=== PATIENT | female | born 1945 | race Caucasian/White ===

== ENCOUNTER 2023-06-07 12:10 | Outpatient (AMB) | payer MEDICARE, BC, SELFPAY ==
--- NOTE | 2023-06-07 12:18 | HO.NEPHOV ---
HPI HPI Comments History of Present Illness Details I had the delight of seeing Elis in follow-up for CKD. She also is known to have a renal cyst. She has been working hard to lose some weight and has been successful , in preparation for her right knee surgery. She uses CPAP at night. She is not on any anticoagulation anymore. She denies any orthostatic symptoms. She does not have any chest pain, shortness of breath, proximal nocturnal dyspnea, pedal edema or urinary symptoms. Her last serum creatinine has been 1.3. She does not take any anti-inflammatory medications. [facility] Medical History (Updated 06/07/23 @ 13:26 by Aleks Pascual MD) UTI symptoms UTI (urinary tract infection) Splenic mass Splenic cyst Skin lesion of right leg Shortness of breath Pulmonary hypertension TAVO treated with BiPAP Morbid obesity Kidney injury Hypoxia Hypertension Hyperlipidemia H/O: CVA (cerebrovascular accident) Edema of leg DVT of lower limb, acute Cystitis COPD (chronic obstructive pulmonary disease) Chronic kidney disease, stage 3a CHF (congestive heart failure) Cellulitis of foot Bronchitis Essential (primary) hypertension Aortic stenosis Surgical History H/O colonoscopy Family History Mother Colon cancer Social History Alcohol intake: never Patient Tobacco Use Status: Former Tobacco user Vital Signs 06/07/23 12:20 Height 5 ft 2 in Weight 210 lb BMI 38.4 BP 122/60 Blood Pressure Location Lt brachial Position Sitting Pulse 70 Pulse Source Pulse Oximeter Pulse Oximetry (%) 95 Oxygen Delivery Method Room Air Physical Exam Vital Signs: Last Vital Signs Pulse 70 06/07/23 12:20 BP 122/60 06/07/23 12:20 Pulse Ox 95 06/07/23 12:20 Oxygen Delivery Method Room Air 06/07/23 12:20 BMI result Body Mass Index 38.4 Const General: comfortable and no acute distress Orientation/consciousness: patient oriented x3 HEENT Head: Yes normocephalic Mouth: Normal oral and palatal mucosa present Eyes EOM: EOMs intact bilaterally Neck Neck: Yes supple Resp Auscultation: clear to auscultation bilaterally Cardio Jugular venous distension: no JVD Rate: regular rate GI Palpation (GI): Soft to palpation Auscultation: normal bowel sounds General: Yes no CVA tenderness Back/Spine/Pelvis Back: no CVA tenderness Skin General skin exam: no rashes or lesions noted Neuro General: patient oriented x3 and moves all extremities Extrem General: Yes no pedal edema Assessment & Plan Assessment & Plan (1) CKD (chronic kidney disease) stage 3, GFR 30-59 ml/min: Code(s): N18.30 - Chronic kidney disease, stage 3 unspecified Qualifiers: Chronic kidney disease stage 3 subtype: stage 3a (GFR 45-59) Qualified Code(s): N18.31 - Chronic kidney disease, stage 3a (2) Hypertension: Code(s): I10 - Essential (primary) hypertension Qualifiers: Hypertension type: primary hypertension Qualified Code(s): I10 - Essential (primary) hypertension (3) Renal cyst: Code(s): N28.1 - Cyst of kidney, acquired Plan Elis has stage III CKD from vascular disease. I reduced her Lasix to 40 mg alternating with 20 mg every other day. She should continue her home oxygen and CPAP at night. She should work hard to lose some more weight. She is cleared to have right knee replacement from a renal perspective. She will be seen in the office with repeat blood work after her surgery for continued care. I shall also get a follow-up renal ultrasound to look at her renal cyst later this year. All questions answered. Follow-up given. Orders: Orders Creatinine Today N18.30 - Chronic kidney disease, stage 3 unspecified Blood Urea Nitrogen Today N18.30 - Chronic kidney disease, stage 3 unspecified Electrolytes Today N18.30 - Chronic kidney disease, stage 3 unspecified Coding Level of Care Code Est Pt Level 4 (07511) Diagnoses Stage 3a chronic kidney disease N18.31 Chronic kidney disease stage 3 subtype: stage 3a (GFR 45-59) Primary hypertension I10 Hypertension type: primary hypertension Renal cyst N28.1 Results Reviewed Nephrology Results: No Data to Display
[2023-06-07 12:20] VITALS: BP 122/60; PULSE 70; O2SAT 95; BMI 38.4
== END 2023-06-07 12:52 | disposition home or self-care (01) ==
PROVIDERS: PCP Family Medicine; Visit Provider Internal Medicine Nephrology
DX: N18.31 Chronic kidney disease, stage 3a (principal); I10 Essential (primary) hypertension; N28.1 Cyst of kidney, acquired
CPT/HCPCS: 99214

== ENCOUNTER → 2023-06-07 12:10 | Outpatient (BNVA) | payer MEDICARE, BC, SELFPAY | PROVIDERS: PCP Family Medicine; Visit Provider Internal Medicine Nephrology | DX: I12.9 Hypertensive chronic kidney disease with stage 1 through stage 4 chronic kidney disease, or unspecified chronic kidney disease (principal); N18.31 Chronic kidney disease, stage 3a; N28.1 Cyst of kidney, acquired | CPT/HCPCS: 99212 ==

== ENCOUNTER 2023-09-22 12:57 | Outpatient (REF) | payer MEDICARE, BC, SELFPAY ==
[2023-09-22 17:58] LABS: Anion Gap 10 (12-20); Blood Urea Nitrogen 24 mg/dL (9-16); Carbon Dioxide 32 mmol/L (22-29); Chloride 101 mmol/L (96-108); Estimated Glomerular Filt Rate > 60; Potassium 3.7 mmol/L (3.3-5.1); Sodium 139 mmol/L (135-145)
== END 2023-09-22 12:58 | disposition home or self-care (01) ==
LOC: HO.HKASLDS 12:57
PROVIDERS: Visit Provider Internal Medicine Nephrology
DX: N18.30 Chronic kidney disease, stage 3 unspecified (principal)
CPT/HCPCS: 36415; 80051; 82565; 84520

== ENCOUNTER 2023-10-06 10:16 | Outpatient (AMB) | payer MEDICARE, BC, SELFPAY ==
--- NOTE | 2023-10-06 10:15 | HO.NEPHOV_ITS ---
Vital Signs 10/06/23 10:22 Height 5 ft 2 in Weight 207 lb 4 oz BMI 37.9 BP 140/50 H Blood Pressure Location Lt brachial Position Sitting Pulse 73 Pulse Source Pulse Oximeter Pulse Oximetry (%) 95 Oxygen Delivery Method Room Air Intake Visit Reasons: 4 Month F/U/ Conf Disability Case Manager Required: No Accompanied by: Self / Same As Patient Allergies environmental allergies Allergy (Verified 10/06/23 10:23) Swelling HPI Comments Details: I had the delight of seeing Elis in follow-up for CKD. She also is known to have a renal cyst. She had right knee surgery. She uses CPAP at night. She is not on any anticoagulation anymore. She denies any orthostatic symptoms. She does not have any chest pain, shortness of breath, proximal nocturnal dyspnea, pedal edema or urinary symptoms. Her last serum creatinine has been 0.85. She does not take any anti-inflammatory medications. [facility] Medical History (Updated 06/07/23 @ 13:26 by Aleks Pascual MD) UTI symptoms UTI (urinary tract infection) Splenic mass Splenic cyst Skin lesion of right leg Shortness of breath Pulmonary hypertension TAVO treated with BiPAP Morbid obesity Kidney injury Hypoxia Hypertension Hyperlipidemia H/O: CVA (cerebrovascular accident) Edema of leg DVT of lower limb, acute Cystitis COPD (chronic obstructive pulmonary disease) Chronic kidney disease, stage 3a CHF (congestive heart failure) Cellulitis of foot Bronchitis Essential (primary) hypertension Aortic stenosis Surgical History H/O colonoscopy Family History Mother Colon cancer Social History Alcohol intake: never Patient Tobacco Use Status: Former Tobacco user Review of Systems Const All systems reviewed & are unremarkable except as noted in HPI and below Physical Exam Const General: comfortable and no acute distress Orientation/consciousness: patient oriented x3 HEENT Head: Yes normocephalic Mouth: Normal oral and palatal mucosa present Eyes EOM: EOMs intact bilaterally Neck Neck: Yes supple Resp Auscultation: clear to auscultation bilaterally Cardio Jugular venous distension: no JVD Rate: regular rate GI Palpation (GI): Soft to palpation Auscultation: normal bowel sounds General: Yes no CVA tenderness Back/Spine/Pelvis Back: no CVA tenderness Skin General skin exam: no rashes or lesions noted Neuro General: patient oriented x3 and moves all extremities Extrem General: Yes no pedal edema Results Reviewed Nephrology Results: Sodium 139 mmol/L (135-145) 09/22/23 Potassium 3.7 mmol/L (3.3-5.1) 09/22/23 Chloride 101 mmol/L (96-108) 09/22/23 Carbon Dioxide 32 mmol/L (22-29) H 09/22/23 BUN 24 mg/dL (9-16) H 09/22/23 Creatinine 0.85 mg/dL (0.5-1.4) 09/22/23 Assessment & Plan Assessment & Plan (1) Renal cyst: Code(s): N28.1 - Cyst of kidney, acquired Category: Medical (2) Hypertension: Code(s): I10 - Essential (primary) hypertension Category: Medical Qualifiers: Hypertension type: primary hypertension Qualified Code(s): I10 - Essential (primary) hypertension (3) CKD (chronic kidney disease) stage 3, GFR 30-59 ml/min: Code(s): N18.30 - Chronic kidney disease, stage 3 unspecified Category: Medical Qualifiers: Chronic kidney disease stage 3 subtype: stage 3a (GFR 45-59) Qualified Code(s): N18.31 - Chronic kidney disease, stage 3a Lalo Gillis has stage III CKD from vascular disease. She could continue on Lasix 40 mg daily for 10 dfays followed by 40 mg alternating with 20 mg every other day. She should continue her home oxygen and CPAP at night. She should work hard to lose some more weight. She will be seen in the office with repeat blood work after her surgery for continued care. I shall also get a follow-up renal ultrasound to look at her renal cyst later this year. All questions answered. Follow-up given. Medications: New furosemide 40 mg PO DAILY 30 tabs 6RF Coding Level of Care Code Est Pt Level 4 (30660) Diagnoses Renal cyst N28.1 Primary hypertension I10 Hypertension type: primary hypertension Stage 3a chronic kidney disease N18.31 Chronic kidney disease stage 3 subtype: stage 3a (GFR 45-59)
[2023-10-06 10:22] VITALS: BP 140/50; PULSE 73; O2SAT 95; BMI 37.9
== END 2023-10-06 10:49 | disposition home or self-care (01) ==
PROVIDERS: PCP Family Medicine; Visit Provider Internal Medicine Nephrology
DX: N28.1 Cyst of kidney, acquired (principal); I10 Essential (primary) hypertension; N18.31 Chronic kidney disease, stage 3a
CPT/HCPCS: 99214

== ENCOUNTER → 2023-10-06 10:16 | Outpatient (BNVA) | payer MEDICARE, BC, SELFPAY | PROVIDERS: PCP Family Medicine; Visit Provider Internal Medicine Nephrology | DX: N28.1 Cyst of kidney, acquired (principal); I12.9 Hypertensive chronic kidney disease with stage 1 through stage 4 chronic kidney disease, or unspecified chronic kidney disease; N18.31 Chronic kidney disease, stage 3a | CPT/HCPCS: 99212 ==

== ENCOUNTER 2024-02-24 13:03 | Outpatient (REF) | payer MEDICARE, BC, SELFPAY ==
[2024-02-24 16:13] LABS: Anion Gap 13 (12-20); Blood Urea Nitrogen 33 mg/dL (9-16); Calcium 10.3 mg/dL (8.4-10.2); Carbon Dioxide 31 mmol/L (22-29); Chloride 101 mmol/L (96-108); Estimated Glomerular Filt Rate 48; Potassium 4.2 mmol/L (3.3-5.1); Sodium 141 mmol/L (135-145)
[2024-02-24 16:27] LABS: Total Protein Urine Random < 7 mg/dL (<12)
== END 2024-02-24 13:04 | disposition home or self-care (01) ==
LOC: HO.HMGCLDS 13:03
PROVIDERS: PCP Family Medicine; Visit Provider Internal Medicine Nephrology
DX: N18.30 Chronic kidney disease, stage 3 unspecified (principal); I10 Essential (primary) hypertension
CPT/HCPCS: 36415; 80051; 82310; 82565; 82570; 84156; 84520

== ENCOUNTER 2024-03-13 09:29 | Outpatient (AMB) | payer MEDICARE, BC, SELFPAY ==
--- NOTE | 2024-03-13 09:38 | HO.NEPHOV ---
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 She also is known to have a renal cyst. She had right knee surgery. She uses CPAP at night. She is not on any anticoagulation anymore. She denies any orthostatic symptoms. She does not have any chest pain, shortness of breath, proximal nocturnal dyspnea, pedal edema or urinary symptoms. She does not take any anti-inflammatory medications [facility] Medical History (Updated 06/07/23 @ 13:26 by Aleks Pascual MD) UTI symptoms UTI (urinary tract infection) Splenic mass Splenic cyst Skin lesion of right leg Shortness of breath Pulmonary hypertension TAVO treated with BiPAP Morbid obesity Kidney injury Hypoxia Hypertension Hyperlipidemia H/O: CVA (cerebrovascular accident) Edema of leg DVT of lower limb, acute Cystitis COPD (chronic obstructive pulmonary disease) Chronic kidney disease, stage 3a CHF (congestive heart failure) Cellulitis of foot Bronchitis Essential (primary) hypertension Aortic stenosis Surgical History H/O colonoscopy Family History Mother Colon cancer Social History Alcohol intake: never Patient Tobacco Use Status: Former Tobacco user Review of Systems Const All systems reviewed & are unremarkable except as noted in HPI and below Physical Exam Vital Signs: Last Vital Signs Pulse 55 03/13/24 09:46 BP 140/68 H 03/13/24 09:46 Pulse Ox 93 03/13/24 09:46 Oxygen Delivery Method Room Air 03/13/24 09:46 BMI result Body Mass Index 36.5 Const General: comfortable and no acute distress Orientation/consciousness: patient oriented x3 HEENT Head: Yes normocephalic Mouth: Normal oral and palatal mucosa present Eyes EOM: EOMs intact bilaterally Neck Neck: Yes supple Resp Auscultation: clear to auscultation bilaterally Cardio Jugular venous distension: no JVD Rate: regular rate GI Palpation (GI): Soft to palpation Auscultation: normal bowel sounds General: Yes no CVA tenderness Back/Spine/Pelvis Back: no CVA tenderness Skin General skin exam: no rashes or lesions noted Neuro General: patient oriented x3 and moves all extremities Extrem General: Yes no pedal edema Results Reviewed Nephrology Results: Sodium 141 mmol/L (135-145) 02/24/24 Potassium 4.2 mmol/L (3.3-5.1) 02/24/24 Chloride 101 mmol/L (96-108) 02/24/24 Carbon Dioxide 31 mmol/L (22-29) H 02/24/24 BUN 33 mg/dL (9-16) H 02/24/24 Creatinine 1.10 mg/dL (0.5-1.4) 02/24/24 Calcium 10.3 mg/dL (8.4-10.2) H 02/24/24 Urine Creatinine 36.50 mg/dL 02/24/24 Protein/Creatinin Ratio TNP 02/24/24 Assessment & Plan Assessment & Plan (1) CKD (chronic kidney disease) stage 3, GFR 30-59 ml/min: Code(s): N18.30 - Chronic kidney disease, stage 3 unspecified Category: Medical Qualifiers: Chronic kidney disease stage 3 subtype: stage 3a (GFR 45-59) Qualified Code(s): N18.31 - Chronic kidney disease, stage 3a (2) Hypertension: Code(s): I10 - Essential (primary) hypertension Category: Medical Qualifiers: Hypertension type: primary hypertension Qualified Code(s): I10 - Essential (primary) hypertension (3) Renal cyst: Code(s): N28.1 - Cyst of kidney, acquired Category: Medical Plan Elis has stage III CKD from vascular disease. She could continue on Lasix 40 mg alternating with 20 mg every other day. She should continue her home oxygen and CPAP at night. She should work hard to lose some more weight. I shall also get a follow-up renal ultrasound to look at her renal cyst later. All questions answered. Follow-up given Orders: Orders Electrolytes 6 Months I10 - Essential (primary) hypertension, N18.31 - Chronic kidney disease, stage 3a, N28.1 - Cyst of kidney, acquired Creatinine 6 Months I10 - Essential (primary) hypertension, N18.31 - Chronic kidney disease, stage 3a, N28.1 - Cyst of kidney, acquired Blood Urea Nitrogen 6 Months I10 - Essential (primary) hypertension, N18.31 - Chronic kidney disease, stage 3a, N28.1 - Cyst of kidney, acquired Coding Level of Care Code Est Pt Level 4 (22455) Diagnoses Stage 3a chronic kidney disease N18.31 Chronic kidney disease stage 3 subtype: stage 3a (GFR 45-59) Primary hypertension I10 Hypertension type: primary hypertension Renal cyst N28.1
[2024-03-13 09:46] VITALS: BP 140/68; PULSE 55; O2SAT 93; BMI 36.5
== END 2024-03-13 10:19 | disposition home or self-care (01) ==
PROVIDERS: PCP Family Medicine; Visit Provider Internal Medicine Nephrology
DX: N18.31 Chronic kidney disease, stage 3a (principal); I10 Essential (primary) hypertension; N28.1 Cyst of kidney, acquired
CPT/HCPCS: 99214

== ENCOUNTER → 2024-03-13 09:29 | Outpatient (BNVA) | payer MEDICARE, BC, SELFPAY | PROVIDERS: PCP Family Medicine; Visit Provider Internal Medicine Nephrology | DX: I12.9 Hypertensive chronic kidney disease with stage 1 through stage 4 chronic kidney disease, or unspecified chronic kidney disease (principal); N18.31 Chronic kidney disease, stage 3a; N28.1 Cyst of kidney, acquired; Z99.89 Dependence on other enabling machines and devices | CPT/HCPCS: 99212 ==

== ENCOUNTER 2024-09-13 12:18 | Outpatient (REF) | payer MEDICARE, BC, SELFPAY ==
[2024-09-13 17:55] LABS: Anion Gap 10 (12-20); Blood Urea Nitrogen 35 mg/dL (9-16); Carbon Dioxide 30 mmol/L (22-29); Chloride 104 mmol/L (96-108); Estimated Glomerular Filt Rate 52; Potassium 4.5 mmol/L (3.3-5.1); Sodium 139 mmol/L (135-145)
== END 2024-09-13 12:19 | disposition home or self-care (01) ==
LOC: HO.HKASLDS 12:18
PROVIDERS: Visit Provider Internal Medicine Nephrology
DX: N28.1 Cyst of kidney, acquired (principal); N18.31 Chronic kidney disease, stage 3a; I10 Essential (primary) hypertension
CPT/HCPCS: 36415; 80051; 82565; 84520

== ENCOUNTER 2024-09-25 09:30 | Outpatient (AMB) | payer MEDICARE, BC, SELFPAY ==
--- NOTE | 2024-09-25 09:31 | HO.NEPHOV ---
Vital Signs 09/25/24 09:32 Height 5 ft 2 in Weight 201 lb BMI 36.8 BP 132/60 Blood Pressure Location Rt brachial Position Sitting Pulse 67 Pulse Source Pulse Oximeter Pulse Oximetry (%) 90 L Oxygen Delivery Method Room Air Intake Visit Reasons: 7mon follow up -w/labs-Conf Streetcar Repairer Required: No Accompanied by: Self / Same As Patient Allergies environmental allergies Allergy (Verified 09/25/24 09:33) Swelling HPI Comments Details: Elis was seen in follow-up for CKD. She also is known to have a renal cyst. She had right knee surgery. She uses CPAP at night. She is not on any anticoagulation anymore. She denies any orthostatic symptoms. She does not have any chest pain, shortness of breath, proximal nocturnal dyspnea, pedal edema or urinary symptoms. She does not take any anti-inflammatory medications COUNTS INCLUDE 234 BEDS AT THE [facility] Medical History (Updated 09/25/24 @ 09:37 by Aleks Pascual MD) UTI symptoms UTI (urinary tract infection) Splenic mass Splenic cyst Skin lesion of right leg Shortness of breath Pulmonary hypertension TAVO treated with BiPAP Morbid obesity Kidney injury Hypoxia Hypertension Hyperlipidemia H/O: CVA (cerebrovascular accident) Edema of leg DVT of lower limb, acute Cystitis COPD (chronic obstructive pulmonary disease) Chronic kidney disease, stage 3a CHF (congestive heart failure) Cellulitis of foot Bronchitis Essential (primary) hypertension Aortic stenosis Surgical History H/O colonoscopy Family History Mother Colon cancer Social History Alcohol intake: never Patient Tobacco Use Status: Former Tobacco user Review of Systems Const All systems reviewed & are unremarkable except as noted in HPI and below Physical Exam Vital Signs: BMI result Body Mass Index 36.8 Const General: comfortable and no acute distress Orientation/consciousness: patient oriented x3 HEENT Head: Yes normocephalic Mouth: Normal oral and palatal mucosa present Eyes EOM: EOMs intact bilaterally Neck Neck: Yes supple Resp Auscultation: clear to auscultation bilaterally Cardio Jugular venous distension: no JVD Rate: regular rate GI Palpation (GI): Soft to palpation Auscultation: normal bowel sounds General: Yes no CVA tenderness Back/Spine/Pelvis Back: no CVA tenderness Skin General skin exam: no rashes or lesions noted Neuro General: patient oriented x3 and moves all extremities Extrem General: Yes no pedal edema Results Reviewed Nephrology Results: Sodium 139 mmol/L (135-145) 09/13/24 Potassium 4.5 mmol/L (3.3-5.1) 09/13/24 Chloride 104 mmol/L (96-108) 09/13/24 Carbon Dioxide 30 mmol/L (22-29) H 09/13/24 BUN 35 mg/dL (9-16) H 09/13/24 Creatinine 1.02 mg/dL (0.5-1.4) 09/13/24 Calcium 10.3 mg/dL (8.4-10.2) H 02/24/24 Urine Creatinine 36.50 mg/dL 02/24/24 Protein/Creatinin Ratio TNP 02/24/24 Assessment & Plan Assessment & Plan (1) CKD (chronic kidney disease) stage 3, GFR 30-59 ml/min: Code(s): N18.30 - Chronic kidney disease, stage 3 unspecified Category: Medical Qualifiers: Chronic kidney disease stage 3 subtype: stage 3a (GFR 45-59) Qualified Code(s): N18.31 - Chronic kidney disease, stage 3a (2) Hypertension: Code(s): I10 - Essential (primary) hypertension Category: Medical Qualifiers: Hypertension type: primary hypertension Qualified Code(s): I10 - Essential (primary) hypertension (3) Renal cyst: Code(s): N28.1 - Cyst of kidney, acquired Category: Medical (4) Hypercalcemia: Code(s): E83.52 - Hypercalcemia Category: Medical Plan Elis has stage III CKD from vascular disease. She could continue on Lasix 40 mg alternating with 20 mg every other day. She should continue her home oxygen and CPAP at night. She should work hard to lose some more weight. I shall also get a follow-up renal ultrasound to look at her renal cyst at the next visit . All questions answered. Follow-up given Orders: Orders Electrolytes 6 Months E83.52 - Hypercalcemia, I10 - Essential (primary) hypertension, N18.31 - Chronic kidney disease, stage 3a Vitamin D 25-OH Total 6 Months E83.52 - Hypercalcemia, I10 - Essential (primary) hypertension, N18.31 - Chronic kidney disease, stage 3a Protein Creatinine Ratio, Ur 6 Months E83.52 - Hypercalcemia, I10 - Essential (primary) hypertension, N18.31 - Chronic kidney disease, stage 3a Creatinine 6 Months E83.52 - Hypercalcemia, I10 - Essential (primary) hypertension, N18.31 - Chronic kidney disease, stage 3a Blood Urea Nitrogen 6 Months E83.52 - Hypercalcemia, I10 - Essential (primary) hypertension, N18.31 - Chronic kidney disease, stage 3a Calcium 6 Months E83.52 - Hypercalcemia, I10 - Essential (primary) hypertension, N18.31 - Chronic kidney disease, stage 3a Parathyroid Hormone Intact 6 Months E83.52 - Hypercalcemia, I10 - Essential (primary) hypertension, N18.31 - Chronic kidney disease, stage 3a Immunofixation Pnl, Serum 6 Months E83.52 - Hypercalcemia, I10 - Essential (primary) hypertension, N18.31 - Chronic kidney disease, stage 3a Vitamin D 1,25 dihydroxy 6 Months E83.52 - Hypercalcemia, I10 - Essential (primary) hypertension, N18.31 - Chronic kidney disease, stage 3a Coding Level of Care Code Est Pt Level 4 (10840) Diagnoses Stage 3a chronic kidney disease N18.31 Chronic kidney disease stage 3 subtype: stage 3a (GFR 45-59) Primary hypertension I10 Hypertension type: primary hypertension Renal cyst N28.1 Hypercalcemia E83.52
[2024-09-25 09:32] VITALS: BP 132/60; PULSE 67; O2SAT 90; BMI 36.8
--- OUTSIDE RECORDS SUMMARY | 2024-09-25 10:16 | XMS_ITS | Data Portability ---
Author Organization [place] - [facility] Address [address] [place] [address] Care Team Providers Care Ms Sql Dba Name Role Phone MELANIE LOPEZ Primary Care Provider NEL JERNIGAN OTHER Assessment Encounter Date Assessment Date Assessment LastModified by Organization Details LastModified Time 02/14/2020 02/14/2020 Overview/History : 74yo female with a PMHx of COPD, HLD/HTN, Stroke who requested to be retested for Covid today. She is not having any Covid symptoms. She denies any cough, anosmia, chest pain or SOB. She has sporadically checked her O2 sat with her self monitoring pulse ox and it has been 92%. She says her baseline is 88-90%. She denies any N/V/D. She has a normal appetite. She denies fevers but feels exhausted. Exam: Vitals: T- 99 HR- 58 RR- 16 BP- 152/72 SpO2- 91% RA A+O x3, well nourished non toxic appearing female in NAD Normal Heart sounds,no edema breath sounds diminished and equal bilaterally. Speaks in full sentences, no increased work of breathing. No Rash DDx considered, but not limited to: Covid-19 Pneumonia COPD exacerbation She is currently asymptomatic. Work up/Results: Covid test Plan/Discussion: The patient under our care today has requested testing for the COVID-19 virus. Currently, they are asymptomatic. Testing was discussed with the patient to ensure understanding of the limitations of this test, including the fact that a negative test does not entirely exclude the possibility of COVID-19 infection. Based on the history obtained and exam today, the decision was made to test for COVID-19 in light of the current pandemic state. The patient was involved in the decision to test using a shared medical decision-making model. The patient is also advised to go to the ED if she develops any worsening symptoms, SOB or chest pain. The patient understood and agreed with this plan. The patient was given discharge instructions and all questions were answered prior to DH team departure. In order to obtain further information and compare any laboratory results/values, I have accessed old patient records. This information was pertinent in my medical decision making today. Time On Scene with Patient: 00:58:17 Proper Personal Protective Equipment (PPE), including gloves, eye protection, N95 mask, gown, and shoe covers were donned and doffed appropriately and all equipment cleaned using approved technique with germicidal disposable wipes prior to and after care of this patient according to [email or web address]'s infection prevention protocols. The patient under our care today has requested testing for the COVID-19 virus. Currently, they are asymptomatic. Testing was discussed with the patient to ensure understanding of the limitations of this test, including the fact that a negative test does not entirely exclude the possibility of COVID-19 infection. Based on the history obtained and exam today, the decision was made to test for COVID-19 in light of the current pandemic state. The patient was involved in the decision to test using a shared medical decision-making model. [email or web address] Not available 02/14/2020 23:11:51 02/20/2020 02/20/2020 Overview/History : 74yo female with a PMHx of COPD, uses CPAP with 2L NC at night, HLD/HTN, stroke with no deficits being seen today at her Dr.'s request for Covid symptoms. She was tested last for asymptomatic Covid because her was positive. At that time she was well appearing, in NAD, breathing comfortably with an oxygen level of 91-93%. She tested positive for the virus on 02/14/20 and began having symptoms on 02/16/20. She reports cough with white sputum production & increase in MACE. She has sporadically checked her O2 sat with her self monitoring pulse ox and it has been 80% after walking but she can get it up to 87% with deep breaths. She denies any N/V/D or headaches. She has a normal appetite. She reports low grade fevers since 02/16/20 with an oral thermometer. Her biggest complaint it exhaustion and fatigue. Exam: Vitals: T- 100.5 HR-84 B/P 122/48 RR 22 O2 sat 88% RA A+O x 3, non toxic appearing but having increase WOB from when seen previous visit Heart sounds normal, +1 edema BLE LS diminished/tight , tachypneic No rash DDx considered, but not limited to: Covid-19 (+) Influenza, ARDS, sepsis, pneumonia, RSV all possible but she has confirmed Covid and symptoms are consistent with the virus. COPD exacerbation possible with known hx. PE possible but not tachycardic and hypoxia can be explained by virus. Work up/Results: Escalated to ER for further management Plan/Discussion: The details of this patient case and the plan of care were discussed with the Virtual Physician web content specialist for [facility] Dr. Andrei Ramirez who recommends ER evaluate given her underlying lung disease and hypoxia. Pt initially refusing hospital but reviewed with her concerns around persistent hypoxia & increase work of breathing. Her partner Narinder helped convince her she needs to be see in ED. Ambulance called and report given to EMS. Pt becoming more confused & anxious while awaiting transport. In order to obtain further information and compare any laboratory results/values, I have accessed old patient records. This information was pertinent in my medical decision making today. Proper Personal Protective Equipment (PPE), including gloves, eye protection, N95 mask, gown, and shoe covers were donned and doffed appropriately and all equipment cleaned using approved technique with germicidal disposable wipes prior to and after care of this patient according to [facility]'s infection prevention protocols. Time on-scene represents total face to face time with patient. More than 50% of the visit was spent in counseling/coord ination of the patient's care. Topics discussed include: Need for ER evaluation, discussion regarding management/plan, medications available at hospital including steroids and continuous oxygen, self proning, disease process and patient education. I also reviewed prognosis of condition I specifically discussed Covid 19 management with underlying COPD. [email or web address] Not available 02/20/2020 17:24:53 Plan of Treatment Reminders Order Date Submit Date Provider Last Modified By Organization Details Last Modified Time Details Appointments None recorded. Lab SARS CoV 2 RNA (COVID-19), QL, kindergartners helper-PCR, respiratory specimen 2019 020 [facility] (Centralized Electronic Ordering - All Locations), Patient Can Go To The Location Of Their Choice, [id number] 22:14:14 Referral None recorded. Procedures None recorded. Surgeries None recorded. Imaging None recorded. Medication Orders None recorded. Patient TargetsNo targets recorded. Patient Instructions Encounter Date Encounter Id Patient Instructions Last Modified By Organization Details Last Modified Time 02/14/2020 [id number] You will be advi sed of your COVID-19 results as they become available. A [facility] staff nurse icu resource team will contact you to let you know the results. We will also communicate the results to your primary care provider if you have one for any follow up needs you may have. Since you do not have symptoms currently, there is no recommendation to self-quarantine. Please continue to wash your hands and practice social distancing as recommended by your local government and public health agencies. If you develop mild symptoms, stay home and isolate yourself. Please continue to monitor the CDC website as the recommendations for length of quarantine change as additional information is released on this virus. Symptoms of Coronavirus What you need to know ? ? ? Anyone can have mild to severe symptoms. ? ? ? Older adults and people who have severe underlying medical conditions like heart or lung disease or diabetes seem to be at higher risk for developing more serious complications from COVID-19 illness. Watch for symptoms People with COVID-19 have had a wide range of symptoms reported ? ranging from mild symptoms to severe illness. Symptoms may appear 2-14 days after exposure to the virus. People with these symptoms may have COVID-19: ? ? ? Fever or chills ? ? ? Cough ? ? ? Shortness of breath or difficulty breathing ? ? ? Fatigue ? ? ? Muscle or body aches ? ? ? Headache ? ? ? New loss of taste or smell ? ? ? Sore throat ? ? ? Congestion or runny nose ? ? ? Nausea or vomiting ? ? ? Diarrhea This list does not include all possible symptoms. The CDC will continue to update this list as we learn more about COVID-19. When to Seek Emergency Medical Attention Look for emergency warning signs* for COVID-19. If someone is showing any of these signs, seek emergency medical care immediately ? ? ? Trouble breathing ? ? ? Persistent pain or pressure in the chest ? ? ? New confusion ? ? ? Inability to wake or stay awake ? ? ? Bluish lips or face *This list does not include all possible symptoms. Please call your medical provider for any other symptoms that are severe or concerning to you. Call 911 or call ahead to your local emergency facility: Notify the cutting and creasing press operator that you are seeking care for someone who has or may have COVID-19. [email or web address] Not available 02/14/2020 19:38:26 02/20/2020 [id number] Please follow rosa guillory CDC guidance. How to Protect Yourself & Others Older adults and people who have severe underlying medical conditions like heart or lung disease or diabetes seem to be at higher risk for developing serious complications from COVID-19 illness. Know how it spreads ? There is currently no vaccine to prevent coronavirus disease 2019 (COVID-19). ? The best way to prevent illness is to avoid being exposed to this virus. ? The virus is thought to spread mainly from [id number]. o Between people who are in close contact with one another (within about 6 feet). o Through respiratory droplets produced when an infected person coughs, sneezes or talks. o These droplets can land in the mouths or noses of people who are nearby or possibly be inhaled into the lungs. o Some recent studies have suggested that COVID-19 may be spread by people who are not showing symptoms. Wash your hands often ? Wash your hands often with soap and water for at least 20 seconds especially after you have been in a public place, or after blowing your nose, coughing, or sneezing. ? If soap and water are not readily available, use a hand equipment driver that contains at least 60% alcohol. Cover all surfaces of your hands and rub them together until they feel dry. ? Avoid touching your eyes, nose, and mouth with unwashed hands. Avoid close contact ? Avoid close contact with people who are sick, even inside your home. If possible, maintain 6 feet between the person who is sick and other household members. ? Put distance between yourself and other people outside of your home. o Remember that some people without symptoms may be able to spread virus. o Stay at least 6 feet (about 2 arms? length) from other people. o Do not gather in groups. o Stay out of crowded places and avoid mass gatherings. o Keeping distance from others is especially important for people who are at higher risk of getting very sick. Cover your mouth and nose with a cloth face cover when around others ? You could spread COVID-19 to others even if you do not feel sick. ? Everyone should wear a cloth face cover when they have to go out in public, for example to the grocery store or to picker other necessities. o Cloth face coverings should not be placed on young children under age 2, anyone who has trouble breathing, or is unconscious, incapacitated or otherwise unable to remove the mask without assistance. ? The cloth face cover is meant to protect other people in case you are infected. ? Do NOT use a facemask meant for a healthcare worker. ? Continue to keep about 6 feet between yourself and others. The cloth face cover is not a substitute for social distancing. Cover coughs and sneezes ? If you are in a private setting and do not have on your cloth face covering, remember to always cover your mouth and nose with a tissue when you cough or sneeze or use the inside of your elbow. ? Throw used tissues in the trash. ? Immediately wash your hands with soap and water for at least 20 seconds. If soap and water are not readily available, clean your hands with a hand equipment driver that contains at least 60% alcohol. Clean and disinfect ? Clean AND disinfect frequently touched surfaces daily. This includes tables, doorknobs, light switches, countertops, handles, desks, phones, keyboards, toilets, faucets, and sinks. ? If surfaces are dirty, clean them. Use detergent or soap and water prior to disinfection. ? Then, use a household disinfectant. Most common EPA-registered household disinfectants will work. Monitor Your Health ? Be alert for symptoms. Watch for fever, cough, shortness of breath, or other symptoms of COVID-19. o Especially important if you are running essential errands, going into the office or workplace, and in settings where it may be difficult to keep a physical distance of 6 feet. ? Take your temperature if symptoms develop. o Don? t take your temperature within 30 minutes of exercising or after taking medications that could lower your temperature, like acetaminophen. ? Follow CDC guidance if symptoms develop. [email or web address] Not available 02/20/2020 16:36:10 Reason for Referral None Reported. Results Created Date Observation Date Name Description Value Unit Range Abnormal Flag Note LastModifiedBy Organization Detail LastModifiedTime 02/14/20 20 02/16/2020 SARS CoV 2 RNA (COVI D-19) , QL, kindergartners helper-P CR, respi rator y speci men covid-19, [facility] abnormal Refer ence range : Not Detec leroy (NOTE ) This nucle ic acid ampli ficat ion test was devel oped and its perfo rmanc e edita cteri stics deter mined by [facility]. Nucle ic acid ampli ficat ion tests inclu de PCR and TMA. This test has not been FDA clear ed or appro rhys. This test has been autho rized by FDA under an Emerg ency Use Autho rizat ion (EUA) . This test is only autho rized for the durat ion of time the decla ratio n that circu mstan javier exist justi fying the autho rizat ion of the emerg ency use of in vitro diagn ostic tests for detec tion of SARS- CoV-2 virus and/o r diagn osis of COVID -19 infec tion under secti on 564(b )(1) of the Act, 21 U.S.C . 360bb b-3(b ) (1), unles s the autho rizat ion is termi nated or revok ed soone r. When diagn ostic testi ng is negat josefina, the possi bilit y of a false negat josefina resul t shoul d be consi dered in the harley xt of a patie nt's recen t expos ures and the prese nce of clini becky signs and sympt oms consi stent with COVID -19. An indiv idual witho ut sympt oms of COVID - 19 and who is not sebastian ing SARS- CoV-2 virus would expec t to have a negat josefina (not detec leroy) resul t in this assay . TEST PERFO RMED BY [facility], HERMINIO AN, PAM [place] Y Not Available [facility] (Centralized Electronic Ordering - All Locations) Patient Can Go To The Location Of Their Choice, [id number] 02/16/2020 22:14:14 Result Notes None recorded. Medical Equipment None Reported. Allergies No known drug allergies Medications Name Sig Start Date Stop Date Status Note LastModified by Organization Details LastModified Time atorvastatin 40 mg tablet TAKE ONE TABLET BY MOUTH AT BEDTIME active Not Available Not Available No t Available cephalexin 250 mg capsule 02/13 completed Not Available Not Available Not Available hydrochlorot hiazide 25 mg tablet active Not Available Not Available No t Available Wixela Inhub 250 mcg-50 mcg/dose powder for inhalation INHALE ONE PUFF BY MOUTH TWICE A DAY (RINSE MOUTH AND THROAT AFTER USE) active Not Available Not Available No t Available Vitals Date Recorded Body temperature Oxygen saturation Oxygen saturation in Arterial blood by Pulse oximetry Heart rate Respiratory rate Systolic blood pressure Diastolic blood pressure Provider Name and Address Organization Details Last Updated DateTime 0 99 [degF] 91 % 91 % 58 /min 16 /min 152 mm[Hg] 72 mm[Hg] Not Available [facility] 0 19:06:58 Date Recorded Oxygen saturation Oxygen saturation in Arterial blood by Pulse oximetry Respiratory rate Body temperature Heart rate Systolic blood pressure Diastolic blood pressure Provider Name and Address Organization Details Last Updated DateTime 0 88 % 88 % 22 /min 100.5 [degF] 84 /min 122 mm[Hg] 48 mm[Hg] Not Available [facility] 0 16:01:10 Social History Question Answer Notes LastModified by Organizat ion Details LastModified Time Tobacco Smoking Status Former Smoker Liat Parish, JOSE A [address], [place], [address], [place] [facility] 02/14/2020 19:47:38 What Is Your Code Status? Full Code [email or web address] Information not available 02/14/2020 Within The Past 12 Months, Has It Happened That The Food You Bought Just Didn't Last And You Didn't Have Money To Get More. No [email or web address] Information not available 02/14/2020 Within The Past 12 Months, Have You Worried That Your Food Would Run Out Before You Got Money To Buy More. No [email or web address] Information not available 02/14/2020 Fall Risk: Do You Feel Unsteady When Standing Or Walking? No [email or web address] Information not available 02/14/2020 We Know That How And When People Interact With Friends And Family Can Be Very Different From Person To Person. How Often Do You Have The Opportunity To See Or Talk To People That You Care About And Feel Close To? (Ex: Talking To Friends On The Phone Or Visiting Friends Or Family Or Going To [employer] Or Club Meetings) 5 Or More Times Per Week [email or web address] Information not available 02/14/2020 We Know From Many Of Our Patients That Covering All Of Their Costs Can Be Difficult At Times. This Can Cause Stress And Impact Health. In The Past Year, Have You Been Unable To Get Any Of The Following When It Was Really Needed? No Information not available 02/14/2020 What Is Your Housing Situation Today? I Have Housing Information not available 02/14/2020 Would You Like Help Connecting To Resources? None [email or web address] Information not available 02/14/2020 Sex: Unknown Functional Status None recorded. Mental Status None recorded. Family History Relationship Description Onset Age of this Age Resolved Age Notes LastModified by Organization Details LastModified Time Father No current problems or disability [email or web address] Not available 02/13 19:47:42 Mother No current problems or disability Not available 02/13 19:47:42 Mother Chronic obstructive pulmonary disease [email or web address] Not available 2019 19:48:09 Medical History Condition Response Diabetes N Coronary Artery Disease N Cancer N Stroke Y COPD Y Depression N Asthma N High Cholesterol Y Pulmonary Embolism N Hypertension Y Kidney Disease N Gynecological HistoryNo gynecological history recorded. Obstetrics History GPAL:G 0 P 0 0 0 0 Past Encounters Encounter ID Performer Location Encounter Start Date Encounter Closed Date Diagnosis/Indication Diagnosis SNOMED-CT Code Diagnosis ICD10 Code Diagnosis Note [id number] Liat Parish NP [facility] [address] [place] [address] CELY GILLESPIE [id number] 02/14/2020 18:20:55 02/15/2020 23:13:58 Exposure to SARS-CoV-2 139235914 Z20.828 Exposure t o communicable disease 758682979 Z20.828 [id number] Liat Parish NP [facility] [address] [place] [address] 02/20/2020 15:42:51 02/21/2020 14:58:26 COVID-19 695631998 U07.1 Chronic ob structive pulmonary disease 10915405 J44.9 Health Concerns Section Related Observation LastModified by Organization Detai ls LastModified Time None Recorded Concern Status LastModified by Organization Details LastModified Time None Recorded Advance Directives Directive None Recorded Payers Insurance Date Sequence Insurance Name Policy Number Policy Nichols Covered Member ID Nichols Member ID Guarantor Name 02/14/2020 1 [place]: [employer] Elis Dussault [id number] Elis Dussault 02/14/2020 1 *SELF PAY* Elis Dussault [id number] Elis Dussault 02/14/2020 1 [place]IC[place] B[place]: [employer] Elis Dussault [id number] Elis Dussault 02/27/2020 2 [facility]: [employer]ERAL EMPLOYEE PROGRAM (POS) Elis Dussault [id number] Elis Dussault Notes Date Note Type Note Provider Name and Address Organization Details Recorded Time 02/14/2020 text/html 74yo female with a PMHx of COPD, uses CPAP with 2L NC at night, HLD/HTN, stroke with no deficits being seen today for Covid swab. Her spouse tested positive on Tuesday02/10/20, she tested (-) at this time but is requesting to be retested since he is having worsening of symptoms. She denies any cough, chest pain or SOB. She has sporadically checked her O2 sat with her self monitoring pulse ox and it has been 92% or higher. She denies any N/V/D. She has a normal appetite. She denies fevers but feels tired. She admits she has been not sleeping well because her spouse is up coughing all night. Liat Parish NP [address], [place], [address], [place] [facility] 02/14/2020 23:11:58 02/20/2020 text/html 74yo female who is known to [facility] and this provider. with a PMHx of COPD, uses CPAP with 2L NC at night, HLD/HTN, stroke with no deficits being seen today at her DrChance's request for Covid symptoms. She tested positive for the virus on 02/14/20. At that time she was asymptomatic and feeling well, O2 sats 91% on RA. She reports cough with white sputum production, increase in MACE, she has sporadically checked her O2 sat with her self monitoring pulse ox and it has been 80% after walking but she can get it up to 87% with deep breaths. She denies any N/V/D or headaches. She has a normal appetite. She reports low grade fevers and exhaustion. states she has been progressively getting worse but wont admit it, he reports she lies about her O2 sats and they have been much lower than she'll admit and hes afraid he will wake up and she'll be next to him. He has been encouraging her to go to the ER for days. Liat Parish NP [address], [place], [address], [place] [facility] 02/26/2020 11:10:16 OBGyn Episode No OBEpisode recorded.
== END 2024-09-25 09:57 | disposition home or self-care (01) ==
LOC: HO.HKAS 09:31
PROVIDERS: PCP Family Medicine; Visit Provider Internal Medicine Nephrology
DX: N18.31 Chronic kidney disease, stage 3a (principal); I10 Essential (primary) hypertension; N28.1 Cyst of kidney, acquired; E83.52 Hypercalcemia
CPT/HCPCS: 99214

== ENCOUNTER → 2024-09-25 09:30 | Outpatient (BNVA) | payer MEDICARE, BC, SELFPAY | PROVIDERS: PCP Family Medicine; Visit Provider Internal Medicine Nephrology | DX: I12.9 Hypertensive chronic kidney disease with stage 1 through stage 4 chronic kidney disease, or unspecified chronic kidney disease (principal); N18.31 Chronic kidney disease, stage 3a; N28.1 Cyst of kidney, acquired; E83.52 Hypercalcemia | CPT/HCPCS: 99212 ==

== ENCOUNTER 2025-03-21 13:51 | Outpatient (REF) | payer MEDICARE, BC, SELFPAY ==
[2025-03-21 18:26] LABS: Anion Gap 11 (12-20); Blood Urea Nitrogen 33 mg/dL (9-16); Calcium 9.9 mg/dL (8.4-10.2); Carbon Dioxide 33 mmol/L (22-29); Chloride 102 mmol/L (96-108); Estimated Glomerular Filt Rate 53; Potassium 4.1 mmol/L (3.3-5.1); Sodium 142 mmol/L (135-145)
[2025-03-21 18:29] LABS: Total Protein Urine Random < 7 mg/dL (<12)
[2025-03-21 18:36] LABS: Parathyroid Hormone Intact 156.5 pg/mL (8.7-77.1)
--- OUTSIDE RECORDS SUMMARY | 2025-03-21 21:31 | XMS_ITS | Clinical Summary ---
Author Organization [facility] Prior to 09/08/24 Address [address] [place] [address] Care Team Providers Care Residential Carpet Installer Name Role Phone Tony Tom MD Primary Care Provider [phone] Allergies No known active allergies Medications Medication Sig Dispensed Refills Start Date End Date Status atorvastatin (LIPITOR) tablet 40 mg Take 1 tablet (40 mg total) by mouth daily. 0 Active aspirin 81 MG chewable tablet Chew 1 tablet (81 mg total) by mouth daily. 0 Active furosemide (LASIX) 40 MG tablet Take 1 tablet (40 mg total) by mouth daily. 0 Active FIBER COMPLETE PO Take by mouth daily. 0 Active Multiple Vitamin (MULTI-VITAMIN DAILY PO) Take by mouth daily. 0 Active Probiotic Product (PROBIOTIC DAILY PO) Take by mouth daily. 0 Active Fluticasone-Salmeterol (WIXELA INHUB IN) Inhale into the lungs. 0 Active Eliquis 5 MG TABS tablet Take 1 tablet (5 mg total) by mouth 2 (two) times a day. 0 04/27/2023 Active Active Problems No known active problems Family History Medical History Relation Name Comments Cancer Mother Relation Name Status Comments Mother Social History Tobacco Use Types Packs/Day Years Used Date Smoking Tobacco: Former Cigarettes Smokeless Tobacco: Never Tobacco Cessation:Counseling Given: Not Answered Alcohol Use Standard Drinks/Week Comments Never 0 (1 standard drink = 0.6 oz pur e alcohol) Sex and Gender Information Value Date Recorded Sex Assigned at Female 12/16/2022 1:59 PM EDT Gender Identity Not on file Sexual Orientation Not on file Job Start Date Occupation Industry Not on file Not on file Not on file Last Filed Vital Signs Vital Sign Reading Time Taken Comments Blood Pressure 136/69 05/31/2023 2:23 PM EST Pulse 70 05/31/2023 2:23 PM EST Temperature 36.8 C (98.2 F) 05/31/2023 2:23 PM EST Respiratory Rate - - Oxygen Saturation 97% 05/31/2023 2:23 PM EST Inhaled Oxygen Concentration - - Weight 95.3 kg (210 lb) 05/31/2023 2:23 PM EST Height 157.5 cm (5' 2 ) 05/31/2023 2:23 PM EST Body Mass Index 38.41 05/31/2023 2:23 PM EST Plan of Treatment Health Maintenance Due Date Last Done Comments Depression Screening 1956 Preventative Health Evaluation 1962 Shingrix-Zoster Vaccine (1 o f 2) 1994 Fall Risk Assessment 2009 Osteoporosis Screening (DEXA Scan) 2009 Pneumococcal Vaccine (1 of 1 - PCV) 2009 RSV Adult > 60+ Yrs or (1 - 1-dose 75+ series) 07/04/2019 COVID-19 Vaccine (4 - 2024-2 6 season) 2024 04/13/2021, 06/09/2020, 05/19/2020 Influenza Vaccine (#1) 2024 3, 04/13/2021, 02/22/2020 DTap / Tdap / Td (2 - Td or Tdap) 02/20/2029 02/20/2019 Hepatitis B Vaccines Aged Out No long er eligible based on patient's age to complete this topic RSV Ped < 20 months Aged Out No longe r eligible based on patient's age to complete this topic Care Teams Residential Carpet Installer Relationship Specialty Start Date End Date Tony Tom MD [address] [place] [id number] PCP - General Family Medicine 12/16/22
--- OUTSIDE RECORDS SUMMARY | 2025-03-21 21:31 | XMS_ITS | Data Portability ---
Author Organization [place] [facility] Address [address] [place] [address] Care Team Providers Care Ambulatory Technologist Name Role Phone MELANIE LOPEZ Primary Care Provider [phone] HILDANEL BRONSON OTHER Assessment Encounter Date Assessment Date Assessment [...] after care of this patient according to [employer]'s infection prevention protocols. The patient under our [...] test using a shared medical decision-making model. [email or web address] Not available 02/14/2020 23:11:51 02/20/2020 02/20/2020 Overview/History [...] care were discussed with the Virtual Physician personal chef for [facility] Dr. Andrei Ramirez who recommends ER evaluate given her underlying lung disease and hypoxia. Pt initially refusing hospital but reviewed with her concerns around persistent hypoxia & increase work of breathing. Her partner Bill helped convince her she needs to be [...] [facility] Time on-scene represents total [...] discussed Covid 19 management with underlying COPD. [email or web address] Not available 02/20/2020 17:24:53 Plan of Treatment Reminders Order Date Submit Date Provider Last Modified By Organization Details Last Modified Time Details Appointments None recorded. Lab SARS CoV 2 RNA (COVID-19), QL, channel marketing manager-PCR, respiratory specimen 2019 020 AKILAH [facility] (Centralized Electronic Ordering - All Locations), Patient Can Go To The Location Of Their Choice, [id number] 0 22:14:14 Referral None recorded. Procedures None recorded. Surgeries None recorded. Imaging None recorded. Medication Orders None recorded. Patient TargetsNo targets recorded. Patient Instructions Encounter Date Encounter Id Patient Instructions Last Modified By Organization Details Last Modified Time 02/14/2020 [id number] You will be advi sed of your COVID-19 results as they become available. A [facility] steamfitter supervisor will contact you to let you know [...] of Coronavirus What you need to know Anyone can have mild to severe symptoms. Older adults and people who have severe underlying medical conditions like heart or lung disease or diabetes seem to be at higher risk for developing more serious complications from COVID-19 illness. Watch for symptoms People with COVID-19 have had a wide range of symptoms reported ranging from mild symptoms to severe illness. Symptoms may appear 2-14 days after exposure to the virus. People with these symptoms may have COVID-19: Fever or chills Cough Shortness of breath or difficulty breathing Fatigue Muscle or body aches Headache New loss of taste or smell Sore throat Congestion or runny nose Nausea or vomiting Diarrhea This list does not include all possible symptoms. The CDC will continue to update this list as we learn more about COVID-19. When to Seek Emergency Medical Attention Look for emergency warning signs* for COVID-19. If someone is showing any of these signs, seek emergency medical care immediately Trouble breathing Persistent pain or pressure in the chest New confusion Inability to wake or stay awake Bluish lips or face *This list does not include all possible symptoms. Please call your medical provider for any other symptoms that are severe or concerning to you. Call 911 or call ahead to your local emergency facility: Notify the stemming machine operator that you are seeking care for someone who has or may have COVID-19. Not available 02/14/2020 19:38:26 02/20/2020 [id number] Please follow rosa guillory CDC guidance. How to Protect Yourself & Others Older adults and people who have severe underlying medical conditions like heart or lung disease or diabetes seem to be at higher risk for developing serious complications from COVID-19 illness. Know how it spreads There is currently no vaccine to prevent coronavirus disease 2019 (COVID-19). The best way to prevent illness is to avoid being exposed to this virus. The virus is thought to spread mainly from [id number]. o Between people who are in close [...] not showing symptoms. Wash your hands often Wash your hands often with soap and water for at least 20 seconds especially after you have been in a public place, or after blowing your nose, coughing, or sneezing. If soap and water are not readily available, use a hand ship carpenter that contains at least 60% alcohol. Cover all surfaces of your hands and rub them together until they feel dry. Avoid touching your eyes, nose, and mouth with unwashed hands. Avoid close contact Avoid close contact with people who are sick, even inside your home. If possible, maintain 6 feet between the person who is sick and other household members. Put distance between yourself and other people outside of your home. o Remember that some people without symptoms may be able to spread virus. o Stay at least 6 feet (about 2 arms length) from other people. o Do not gather in groups. o Stay out of crowded places and avoid mass gatherings. o Keeping distance from others is especially important for people who are at higher risk of getting very sick. Cover your mouth and nose with a cloth face cover when around others You could spread COVID-19 to others even if you do not feel sick. Everyone should wear a cloth face cover when they have to go out in public, for example to the grocery store or to picking supervisor other necessities. o Cloth face coverings should not be placed on young children under age 2, anyone who has trouble breathing, or is unconscious, incapacitated or otherwise unable to remove the mask without assistance. The cloth face cover is meant to protect other people in case you are infected. Do NOT use a facemask meant for a healthcare worker. Continue to keep about 6 feet between yourself and others. The cloth face cover is not a substitute for social distancing. Cover coughs and sneezes If you are in a private setting and do not have on your cloth face covering, remember to always cover your mouth and nose with a tissue when you cough or sneeze or use the inside of your elbow. Throw used tissues in the trash. Immediately wash your hands with soap and water for at least 20 seconds. If soap and water are not readily available, clean your hands with a hand ship carpenter that contains at least 60% alcohol. Clean and disinfect Clean AND disinfect frequently touched surfaces daily. This includes tables, doorknobs, light switches, countertops, handles, desks, phones, keyboards, toilets, faucets, and sinks. If surfaces are dirty, clean them. Use detergent or soap and water prior to disinfection. Then, use a household disinfectant. Most common EPA-registered household disinfectants will work. Monitor Your Health Be alert for symptoms. Watch for fever, cough, shortness of breath, or other symptoms of COVID-19. o Especially important if you are running essential errands, going into the office or workplace, and in settings where it may be difficult to keep a physical distance of 6 feet. Take your temperature if symptoms develop. o Don t take your temperature within 30 minutes of exercising or after taking medications that could lower your temperature, like acetaminophen. Follow CDC guidance if symptoms develop. [email or web address] Not available 02/20/2020 16:36:10 Reason for Referral None Reported. Results Created Date Observation Date Name Description Value Unit Range Abnormal Flag Note LastModifiedBy Organization Detail LastModifiedTime 02/14/20 20 02/16/2020 SARS CoV 2 RNA (COVI D-19) , QL, channel marketing manager-P CR, respi rator y speci men covid-19, DARBY DETECT ED abnormal Refer ence range : Not Detec leroy (NOTE ) This nucle ic acid ampli ficat ion test was dante emanuel and its perfo rmanc e edita cteri stics deter mined by [email or web address] Labor atori es. Nucle ic acid [...] this assay . TEST PERFO RMED BY [facility] UZMA, PAM CAMP Y Not Available [facility] (Centralized Electronic Ordering - All Locations) Patient Can Go To The Location Of Their Choice, [id number] 02/16/2020 22:14:14 Result Notes None recorded. Medical [...] Vitals Date Recorded Body temperature Oxygen saturation Heart rate Respiratory rate Systolic And Diastolic Provider Name and Address Organization Details Last Updated DateTime 0 99 [degF] 91 % 58 /min 16 /min 152/72 mm[Hg] Not Available [facility] 0 19:06:58 Date Recorded Oxygen saturation Respiratory rate Body temperature Heart rate Systolic And Diastolic Provider Name and Address Organization Details Last Updated DateTime 0 88 % 22 /min 100.5 [degF] 84 /min 122/48 mm[Hg] Not Available [facility] 0 16:01:10 Social History Question Answer Notes LastModified by [email or web address] ion Details LastModified Time Tobacco Smoking Status Former Smoker Liat Parish NP [address] [place], [address], [place] [facility] 02/14/2020 19:47:38 What Is Your Code Status? Full Code [email or web address] Information not available 02/14/2020 Within The Past 12 Months, Has It Happened That The Food You Bought Just Didn't Last And You Didn't Have Money To Get More. No [email or web address] Information not available 02/14/2020 Within The Past 12 Months, Have You Worried That Your Food Would Run Out Before You Got Money To Buy More. No [email or web address] Information not available 02/14/2020 Fall Risk: Do You Feel Unsteady When Standing Or Walking? No [email or web address] Information not available 02/14/2020 We Know That How And When People Interact With Friends And Family Can Be Very Different From Person To Person. How Often Do You Have The Opportunity To See Or Talk To People That You Care About And Feel Close To? (Ex: Talking To Friends On The Phone Or Visiting Friends Or Family Or Going To Methodist Or Club Meetings) 5 Or More Times Per Week Information not available 02/14/2020 We Know From [...] You Like Help Connecting To Resources? None Information not available 02/14/2020 Sex: Unknown Functional Status None recorded. Mental Status None recorded. Family History Relationship Description Onset Age of this Age Resolved Age Notes LastModified by Organization Details LastModified Time Father No current problems or disability Not available 02/13 19:47:42 Mother No current problems or disability Not available 02/13 19:47:42 Mother Chronic obstructive pulmonary disease [email or web address] Not available 2019 19:48:09 Medical History Condition Response Diabetes N Coronary Artery Disease N Cancer N Stroke Y Asthma N COPD Y Depression N High Cholesterol Y Pulmonary Embolism N Hypertension Y Kidney Disease N Gynecological HistoryNo gynecological history recorded. Obstetrics History GPAL:G 0 P 0 0 0 0 Past Encounters Encounter ID Performer Location Encounter Start Date Encounter Closed Date Diagnosis/Indication Diagnosis SNOMED-CT Code Diagnosis ICD10 Code Diagnosis IMO Codes Diagnosis Note [id number] Liat [facility]JOSE A [facility] [address] [place] [address] 02/14/2020 18:20:55 02/15/2020 23:13:58 Exposure to SARS-CoV-2 101204179 Z20.828 Exposure t o communicable disease 484882911 Z20.828 [id number] [facility]iat [facility] A [facility] [address] [place] [address] 02/20/2020 15:42:51 02/21/2020 14:58:26 COVID-19 637171252 U07.1 Chronic ob structive pulmonary disease 25536540 J44.9 Health Concerns Section Related Observation LastModified by Organization Detai ls LastModified Time None Recorded Concern Status LastModified by Organization Details LastModified Time None Recorded Advance Directives Directive None Recorded Payers Insurance Date Sequence Insurance Name Policy Number Policy Nichols Covered Member ID Nichols Member ID Guarantor Name 02/14/2020 1 MEDICARE B-[place]: [employer] Elis Dussault [id number] Elis Dussault 02/14/2020 1 *SELF PAY* Elis Dussault [id number] Elis Dussault 02/14/2020 1 [place] B[place] [employer] Elis Dussault [id number] Elis Jameson 02/27/2020 2 [facility]: [employer] PROGRAM (POS) Elis Jameson [id number] Elis Jameson Notes Date Note Type Note Provider Name [...] spouse is up coughing all night. Liat Parish, JOSE A [address] [place], [address], [place] [facility] 02/14/2020 23:11:58 02/20/2020 text/html COVID-19 Symptom s August 2019Reported by Patient 74yo female who is known to [facility] and this provider. with a PMHx of [...] ER for days. Liat Parish NP [address], [place], [address], [place] [facility] 02/26/2020 11:10:16 OBGyn Episode No OBEpisode recorded.
== END 2025-03-21 13:52 ==
LOC: HO.HKASLDS 13:51
PROVIDERS: PCP Internal Medicine; Visit Provider Internal Medicine Nephrology
DX: I12.9 Hypertensive chronic kidney disease with stage 1 through stage 4 chronic kidney disease, or unspecified chronic kidney disease (principal); N18.31 Chronic kidney disease, stage 3a; E83.52 Hypercalcemia
CPT/HCPCS: 36415; 80051; 82306; 82310; 82565; 82570; 82652; 82784; 83970; 84156; 84520; 86334

== ENCOUNTER 2025-03-28 09:30 | Outpatient (AMB) | payer MEDICARE, BC, SELFPAY ==
--- NOTE | 2025-03-28 09:34 | HO.NEPHOV ---
Vital Signs 03/28/25 09:35 Height 5 ft 2 in Weight 198 lb BMI 36.2 BP 124/60 Blood Pressure Location Lt brachial Position Sitting Pulse 52 Pulse Source Pulse Oximeter Pulse Oximetry (%) 92 Oxygen Delivery Method Room Air Intake Visit Reasons: 6m follow up Production Administrator Required: No Accompanied by: Self / Same As Patient Allergies environmental allergies Allergy (Verified 03/28/25 09:35) Swelling HPI Comments Details: Elis was seen in follow-up for CKD. She also is known to have a renal cyst. She had right knee surgery. She uses CPAP at night. She is not on any anticoagulation anymore. She denies any orthostatic symptoms. She does not have any chest pain, shortness of breath, proximal nocturnal dyspnea, pedal edema or urinary symptoms. She does not take any anti-inflammatory medications. [facility] Medical History (Updated 09/25/24 @ 09:37 by Aleks Pascual MD) UTI symptoms UTI (urinary tract infection) Splenic mass Splenic cyst Skin lesion of right leg Shortness of breath Pulmonary hypertension TAVO treated with BiPAP Morbid obesity Kidney injury Hypoxia Hypertension Hyperlipidemia H/O: CVA (cerebrovascular accident) Edema of leg DVT of lower limb, acute Cystitis COPD (chronic obstructive pulmonary disease) Chronic kidney disease, stage 3a CHF (congestive heart failure) Cellulitis of foot Bronchitis Essential (primary) hypertension Aortic stenosis Surgical History H/O colonoscopy Family History Mother Colon cancer Social History Alcohol intake: never Patient Tobacco Use Status: Former Tobacco user Review of Systems Const All systems reviewed & are unremarkable except as noted in HPI and below Physical Exam Const General: comfortable and no acute distress Orientation/consciousness: patient oriented x3 HEENT Head: Yes normocephalic Mouth: Normal oral and palatal mucosa present Eyes EOM: EOMs intact bilaterally Neck Neck: Yes supple Resp Auscultation: clear to auscultation bilaterally Cardio Jugular venous distension: no JVD Rate: regular rate GI Palpation (GI): Soft to palpation Auscultation: normal bowel sounds General: Yes no CVA tenderness Back/Spine/Pelvis Back: no CVA tenderness Skin General skin exam: no rashes or lesions noted Neuro General: patient oriented x3 and moves all extremities Extrem General: Yes no pedal edema Results Reviewed Nephrology Results: Sodium, (135-145) 142 mmol/L 03/21/25 Potassium, (3.3-5.1) 4.1 mmol/L 03/21/25 Chloride, (96-108) 102 mmol/L 03/21/25 Carbon Dioxide, (22-29) 33 mmol/L H 03/21/25 BUN, (9-16) 33 mg/dL H 03/21/25 Creatinine, (0.5-1.4) 1.00 mg/dL 03/21/25 Calcium, (8.4-10.2) 9.9 mg/dL 03/21/25 PTH Intact, (8.7-77.1) 156.5 pg/mL H 03/21/25 Urine Creatinine 9.57 mg/dL 03/21/25 Protein/Creatinin Ratio TNP 03/21/25 Assessment & Plan Assessment & Plan (1) CKD (chronic kidney disease) stage 3, GFR 30-59 ml/min: Code(s): N18.30 - Chronic kidney disease, stage 3 unspecified Category: Medical Qualifiers: Chronic kidney disease stage 3 subtype: stage 3a (GFR 45-59) Qualified Code(s): N18.31 - Chronic kidney disease, stage 3a (2) Renal cyst: Code(s): N28.1 - Cyst of kidney, acquired Category: Medical (3) Hypercalcemia: Code(s): E83.52 - Hypercalcemia Category: Medical (4) Hypertension: Code(s): I10 - Essential (primary) hypertension Category: Medical Qualifiers: Hypertension type: primary hypertension Qualified Code(s): I10 - Essential (primary) hypertension Plan Elis has stage III CKD from vascular disease. She could continue on Lasix 40 mg alternating with 20 mg every other day. She should continue her home oxygen and CPAP at night. She should work hard to lose some more weight. If her PTH goes up, she needs sestamibi scan. There is no need to start calcitriol/sensipar now. I shall also get a follow-up renal ultrasound to look at her renal cyst later . All questions answered. Follow-up given Orders: Orders Creatinine 7 Months E83.52 - Hypercalcemia, I10 - Essential (primary) hypertension, N18.31 - Chronic kidney disease, stage 3a, N28.1 - Cyst of kidney, acquired Blood Urea Nitrogen 7 Months E83.52 - Hypercalcemia, I10 - Essential (primary) hypertension, N18.31 - Chronic kidney disease, stage 3a, N28.1 - Cyst of kidney, acquired Electrolytes 7 Months E83.52 - Hypercalcemia, I10 - Essential (primary) hypertension, N18.31 - Chronic kidney disease, stage 3a, N28.1 - Cyst of kidney, acquired Protein Creatinine Ratio, Ur 7 Months E83.52 - Hypercalcemia, I10 - Essential (primary) hypertension, N18.31 - Chronic kidney disease, stage 3a, N28.1 - Cyst of kidney, acquired Parathyroid Hormone Intact 7 Months E83.52 - Hypercalcemia, I10 - Essential (primary) hypertension, N18.31 - Chronic kidney disease, stage 3a, N28.1 - Cyst of kidney, acquired Medications: New amlodipine 5 mg PO DAILY 90 tabs 4RF Refilled furosemide 40 mg PO DAILY 90 tabs 3RF Coding Level of Care Code Est Pt Level 4 (92166) Diagnoses Stage 3a chronic kidney disease N18.31 Chronic kidney disease stage 3 subtype: stage 3a (GFR 45-59) Renal cyst N28.1 Hypercalcemia E83.52 Primary hypertension I10 Hypertension type: primary hypertension
[2025-03-28 09:35] VITALS: BP 124/60; PULSE 52; O2SAT 92; BMI 36.2
--- OUTSIDE RECORDS SUMMARY | 2025-03-28 10:53 | XMS_ITS | Clinical Summary ---
Author Organization [facility] Address [address] [address] [place] [address] Phone Care Team Providers Care Receptionist Doctor'S Office Name Role Phone Tony Tom DO Primary Care Provider [phone] Allergies No known active allergies Medications aspirin (ST HERMELINDA) 81 MG EC tablet Take 1 tablet by mouth 1 (one) time each day Active atorvastatin (LIPITOR) 40 MG tablet Take 1 tablet by mouth 1 (one) time each day Active Multiple Vitamin (MULTIVITAMIN ADULT PO) Take 1 tablet by mouth 1 (one) time each day Active furosemide (LASIX) 40 MG tablet Take 40 mg by mouth 1 (one) time each day 3 Active Fluticasone-Salmet maynor 250-50 MCG/ACT aerosol powder Inhale 2 Active Calcium Polycarbophil (Fiber) 625 MG tablet Take 1 tablet by mouth 1 (one) time each day Active Probiotic Product (PROBIOTIC-10 PO) Take 1 tablet by mouth daily Active Active Problems Problem Noted Date Diagnosed Date Finding of neck region 09/21/2022 Mass of skin of right lower limb 09/21/2022 Patient encounter status 09/21/2022 Stage 3a chronic kidney disease 09/21/2022 Benign essential hypertension 09/20/2022 Cerebrovascular accident 09/20/2022 Overview (09/20/2022): left MCA infarct 2014 Chronic obstructive pulmonary disease 09/20/2022 Family history of cancer of colon 09/20/2022 Hyperlipidemia 09/20/2022 Hypoxia 09/20/2022 Obstructive sleep apnea syndrome 09/20/2022 Severe obesity 09/20/2022 Hypertension 12/22/2020 Chronic kidney disease stage 3 06/18/2020 Hypertensive renal disease 06/18/2020 Simple renal cyst 06/18/2020 Immunizations Immunization Administration Dates Next Due Influenza Whole 01/05/2019 Pfizer SARS-COV-2 04/13/2021,06/09/2020,05/19/19 21 Tdap 02/20/2019 Family History Medical History Relation Comments Cancer Mother Colon cancer Hypertension Sibling 1 Heart disease Sibling 2 Cancer Sibling 3 Relation Status Comments Father Mother Sibling 1 Sibling 2 Sibling 3 Social History Tobacco Use Types Packs/Day Years Used Date Smoking Tobacco: Former Cigarettes 0 Q uit: 04/11/2014 Smokeless Tobacco: Former Tobacco Cessation:Counseling Given: Not Answered Comments:Smoking History Info:Every day Alcohol Use Standard Drinks/Week Comments No 0 (1 standard drink = 0.6 oz pur e alcohol) Comments Unknown Sex and Gender Information Value Date Recorded Sex Assigned at Not on file Legal Sex Female 4:46 PM EST Gender Identity Not on file Sexual Orientation Not on file Last Filed Vital Signs Vital Sign Reading Time Taken Comments Blood Pressure 132/60 01/03/2023 1:20 PM EDT Pulse 66 01/03/2023 1:20 PM EDT Temperature - - Respiratory Rate - - Oxygen Saturation 92% 01/03/2023 1:20 PM EDT Inhaled Oxygen Concentration - - Weight 104 kg (230 lb) 01/03/2023 1:20 PM EDT Height 157.5 cm (5' 2 ) 06/19/2019 12:01 PM EDT Body Mass Index 42.07 06/19/2019 12:01 PM EDT Plan of Treatment Health Maintenance Due Date Last Done Comments Pneumococcal Vaccine: 50+ Ye ars (1 of 2 - PCV) 07/04/1964 Influenza Vaccine (#1) 2024 01/05/2019 Hepatitis B Vaccine Aged Out No longe r eligible based on patient's age to complete this topic Insurance [facility] [place] [address] [facility] Medicare [facility] Medicare Care Teams Receptionist Doctor'S Office Relationship Specialty Start Date End Date Tony Tom DO [address] [place] [address] PCP - General 04/21/20
--- OUTSIDE RECORDS SUMMARY | 2025-03-28 10:54 | XMS_ITS | Clinical Summary ---
Author Organization [facility] Prior to 09/08/24 Address [address] [place] [address] Care Team Providers Care Stud Master/Mistress Name Role Phone Tony Tom MD Primary Care Provider [phone] Allergies No known active allergies Medications Medication [...] age to complete this topic Care Teams Stud Master/Mistress Relationship Specialty Start Date End Date Tony Tom MD [address] [place] [id number] PCP - General Family Medicine 12/16/22
== END 2025-03-28 10:01 | disposition home or self-care (01) ==
LOC: HO.HKAS 09:30
PROVIDERS: PCP Family Medicine; Visit Provider Internal Medicine Nephrology
DX: N18.31 Chronic kidney disease, stage 3a (principal); N28.1 Cyst of kidney, acquired; E83.52 Hypercalcemia; I10 Essential (primary) hypertension
CPT/HCPCS: 99214

== ENCOUNTER → 2025-03-28 09:30 | Outpatient (BNVA) | payer MEDICARE, BC, SELFPAY | PROVIDERS: PCP Family Medicine; Visit Provider Internal Medicine Nephrology | DX: I10 Essential (primary) hypertension (principal); E83.52 Hypercalcemia; N28.1 Cyst of kidney, acquired; N18.31 Chronic kidney disease, stage 3a | CPT/HCPCS: 99212 ==